=== PATIENT | male | born 1965 | race Caucasian/White ===

== ENCOUNTER 2023-05-28 10:05 | Outpatient (CLI) | payer BC, SELFPAY | END 2023-05-28 10:06 | disposition home or self-care (01) | LOC: NFLDREF 05-30 08:20 | PROVIDERS: Visit Provider Emergency Medicine | DX: Z00.00 Encounter for general adult medical examination without abnormal findings (principal); L30.9 Dermatitis, unspecified; N52.9 Male erectile dysfunction, unspecified; Z12.5 Encounter for screening for malignant neoplasm of prostate; Z13.6 Encounter for screening for cardiovascular disorders | CPT/HCPCS: 80048; 80061; G0103 ==

== ENCOUNTER 2024-05-05 10:52 | Outpatient (CLI) | payer BC, SELFPAY | END 2024-05-05 10:53 | disposition home or self-care (01) | LOC: NFLDREF 05-07 03:13 | PROVIDERS: Visit Provider Emergency Medicine | DX: Z13.228 Encounter for screening for other metabolic disorders (principal); Z13.220 Encounter for screening for lipoid disorders; Z12.5 Encounter for screening for malignant neoplasm of prostate | CPT/HCPCS: 80048; 80061; G0103 ==